=== PATIENT | female | born 1970 | race Caucasian/White ===

== ENCOUNTER 2017-07-14 10:59 | Emergency (ER) | payer OTHER ==
[~2017-07-14] VITALS: Ht 162.5 cm; Wt 104.3 kg
[~2017-07-14 10:59] MED LIST: CLARITIN10 MG PO; K-DUR 1010 MEQ PO; LASIX40 MG PO; LEVOFLOXACIN500 MG PO; LISINOPRIL10 MG PO; MEDROL DOSEPAK4 MG PO; PREDNISONE10 MG PO; PRILOSEC20 MG PO; PROVENTIL0.09 MG/AC IH; TRAMADOL HCL50 MG PO; ULTRAM50 MG PO; ZITHROMAX Z PA250 MG PO
[2017-07-14 11:16] VITALS: BP 156/98
[2017-07-14 13:16] LABS: BASO # 0.1 10*3/uL (0.0-0.1); BASO % 0.5 % (0.0-1.0); EOS # 0.4 10*3/uL (0.0-0.4); EOS % 3.5 % (1.0-4.0); HEMATOCRIT 31.9 % (37.0-47.0); HEMOGLOBIN 9.7 g/dl (12.0-16.0); LYMPH # 3.2 10*3/uL (1.3-4.4); LYMPH % 31.7 % (27.0-41.0); MEAN CELL VOLUME 84.2 fl (81.0-99.0); MEAN CORPUSCULAR HGB 25.6 pg (27.0-31.0); MEAN CORPUSCULAR HGB CONC 30.4 g/dl (33.0-37.0); MEAN PLATELET VOLUME 8.9 fl (9.6-12.3); MONO # 0.8 10*3/uL (0.1-1.0); MONO % 7.5 % (3.0-9.0); NEUT # 5.7 10*3/uL (2.3-7.9); NEUT % 56.6 % (47.0-73.0); PLATELET COUNT AUTOMATED 359 10*3/uL (130-400); RED BLOOD COUNT 3.79 10*6/uL (4.10-5.10); RED CELL DISTRI WIDTH 15.8 % (0-14.5)
[2017-07-14 13:31] LABS: ALBUMIN 3.3 gm/dl (3.1-4.5); ALKALINE PHOSPHATASE 116 U/L (45-117); BUN 5 mg/dl (7-24); CHLORIDE 104 mmol/L (98-107); CREATININE 0.79 mg/dL (0.55-1.02); POTASSIUM 3.7 mmol/L (3.5-5.1); SGOT/AST 17 IU/L (3-35); SGPT/ALT 25 U/L (12-78); SODIUM 141 mmol/L (136-145); TOTAL PROTEIN 7.9 gm/dL (6.4-8.2)
== END 2017-07-14 14:52 | disposition home or self-care (01) ==
LOC: ED 10:59
PROVIDERS: Nurse Practitioner
DX: J40 Bronchitis, not specified as acute or chronic (principal); F17.200 Nicotine dependence, unspecified, uncomplicated; Z98.890 Other specified postprocedural states; Z98.51 Tubal ligation status; Z90.49 Acquired absence of other specified parts of digestive tract; Z79.899 Other long term (current) drug therapy; Z88.5 Allergy status to narcotic agent

== ENCOUNTER → 2018-10-11 | Outpatient (CLI) | payer OTHER | END | disposition home or self-care (01) | LOC: MAMMO 15:20 | DX: Z12.31 Encounter for screening mammogram for malignant neoplasm of breast (principal); R92.1 Mammographic calcification found on diagnostic imaging of breast ==

== ENCOUNTER 2019-09-10 06:56 | Emergency (ER) | payer SELFPAY ==
[~2019-09-10] VITALS: Ht 162.5 cm; Wt 90.7 kg
[2019-09-10 06:57] VITALS: BP 152/111
[2019-09-10] MEDS ORDERED: TYLENOL325 M1 PO (07:16)
[2019-09-10] MEDS ORDERED: NAPROSYN500 MG PO (07:16)
== END 2019-09-10 07:17 | disposition home or self-care (01) ==
LOC: ED 06:56
DX: M25.511 Pain in right shoulder (principal); F17.210 Nicotine dependence, cigarettes, uncomplicated; Z88.5 Allergy status to narcotic agent; Z79.899 Other long term (current) drug therapy; Z90.49 Acquired absence of other specified parts of digestive tract; X50.1XXA Overexertion from prolonged static or awkward postures, initial encounter; Y93.89 Activity, other specified; Y92.094 Garage of other non-institutional residence as the place of occurrence of the external cause; Y99.8 Other external cause status

== ENCOUNTER 2020-07-17 14:50 | Emergency (ER) | payer OTHER ==
[~2020-07-17] VITALS: Wt 84.8 kg
[~2020-07-17 14:50] MED LIST changes: +NAPROSYN500 MG PO; +TYLENOL325 M1 PO
[2020-07-17 15:51] LABS: BASO # 0.1 10*3/uL (0.0-0.1); BASO % 0.8 % (0.0-1.0); EOS # 0.5 10*3/uL (0.0-0.4); EOS % 4.7 % (1.0-4.0); LYMPH # 2.6 10*3/uL (1.3-4.4); LYMPH % 24.5 % (27.0-41.0); MEAN CELL VOLUME 91.3 fl (81.0-99.0); MEAN CORPUSCULAR HGB 29.3 pg (27.0-31.0); MEAN CORPUSCULAR HGB CONC 32.1 g/dl (33.0-37.0); MEAN PLATELET VOLUME 8.9 fl (9.6-12.3); MONO # 0.8 10*3/uL (0.1-1.0); MONO % 7.1 % (3.0-9.0); NEUT # 6.7 10*3/uL (2.3-7.9); NEUT % 62.6 % (47.0-73.0); PLATELET COUNT AUTOMATED 310 10*3/uL (130-400); RED BLOOD COUNT 4.27 10*6/uL (4.10-5.10); RED CELL DISTRI WIDTH 15.4 % (0-14.5); WHITE BLOOD COUNT 10.7 10*3/uL (4.8-10.8)
[2020-07-17 16:11] LABS: ALBUMIN 3.2 gm/dl (3.1-4.5); ALKALINE PHOSPHATASE 110 U/L (45-117); BUN 7 mg/dl (7-24); CHLORIDE 109 mmol/L (98-107); CREATININE 0.68 mg/dL (0.55-1.02); POTASSIUM 3.4 mmol/L (3.5-5.1); SGOT/AST 8 IU/L (3-35); SGPT/ALT 19 U/L (12-78); SODIUM 140 mmol/L (136-145); TOTAL PROTEIN 7.6 gm/dL (6.4-8.2)
[2020-07-17 16:12] LABS: TROPONIN I < 0.015 ng/ml (<0.045)
[2020-07-17] MEDS ORDERED: LISINOPRIL10 M1 PO (17:00)
[2020-07-17 17:03] VITALS: BP 132/96
== END 2020-07-17 17:42 | disposition home or self-care (01) ==
LOC: ED 14:50
PROVIDERS: Nurse Practitioner Family
DX: I10 Essential (primary) hypertension (principal); Z98.890 Other specified postprocedural states; Z90.49 Acquired absence of other specified parts of digestive tract; Z79.899 Other long term (current) drug therapy; Z88.5 Allergy status to narcotic agent

== ENCOUNTER 2021-12-02 12:09 | Emergency (ER) | payer BC ==
[~2021-12-02] VITALS: Ht 162.5 cm; Wt 95.3 kg
[~2021-12-02 12:09] MED LIST changes: +LISINOPRIL10 M1 PO
[2021-12-02 12:20] VITALS: BP 168/112
[2021-12-02] MEDS ORDERED: NAPROSYN500 MG PO (14:44)
== END 2021-12-02 15:02 | disposition home or self-care (01) ==
LOC: ED 12:09
DX: M25.562 Pain in left knee (principal); F17.200 Nicotine dependence, unspecified, uncomplicated; Z88.6 Allergy status to analgesic agent; Z79.899 Other long term (current) drug therapy

== ENCOUNTER 2023-03-05 19:05 | Emergency (ER) | payer OTHER ==
[~2023-03-05] VITALS: Ht 162.5 cm; Wt 95.3 kg
[2023-03-05 20:00] VITALS: BP 150/94
[2023-03-05] MEDS ORDERED: PROVENTIL HFA6.7 GM PO (20:35)
[2023-03-05] MEDS ORDERED: PREDNISONE10 MG PO (20:35)
[2023-03-05] MEDS ORDERED: VIBRA-TAB100 MG PO (20:35)
== END 2023-03-05 20:44 | disposition home or self-care (01) ==
LOC: ED 19:05
DX: J40 Bronchitis, not specified as acute or chronic (principal); Z88.8 Allergy status to other drugs, medicaments and biological substances; Z79.899 Other long term (current) drug therapy; Z98.890 Other specified postprocedural states; Z90.49 Acquired absence of other specified parts of digestive tract; Z98.51 Tubal ligation status; F17.200 Nicotine dependence, unspecified, uncomplicated